=== PATIENT | female | born 1970 | race Asian ===

== ENCOUNTER 2023-08-22 08:41 | Outpatient (CLI) | payer BC ==
[2023-08-22] MEDS ORDERED: Iopamidol 370 76% 100 ML VIAL ONE (13:36)
== END 2023-08-22 08:42 | disposition home or self-care (01) ==
LOC: CT 08:41
PROVIDERS: ATTEND Internal Medicine Gastroenterology
DX: K31.89 Other diseases of stomach and duodenum (principal); R10.12 Left upper quadrant pain
CPT/HCPCS: 74177